=== PATIENT | female | born 1990 | race Caucasian/White ===

== ENCOUNTER 2018-10-21 21:54 | Emergency (ER) | payer MEDICAID ==
[~2018-10-21] VITALS: Ht 165.1 cm; Wt 49.0 kg
--- NOTE | 2018-10-21 22:02 | NUR ---
Dr. Riggins at bedside for mse.
[2018-10-21] MEDS ORDERED: SULFAMETH/TRIMETH 800/160 MG TABLET ONE (22:09)
[2018-10-21 22:11] VITALS: BP 111/64
--- NOTE | 2018-10-21 22:11 | NUR ---
Patient discharged to home in stable conditon. Written and verbal after care instructions given. Patient verbalizes understanding of instructions. Patient left with stable gait.
[2018-10-21] MEDS ORDERED: SULFAMETH/TRIMETH 800/160 MG TABLET PO ONE (22:15)
== END 2018-10-21 22:12 | disposition home or self-care (01) ==
LOC: ER 21:54
DX: S60.562A Insect bite (nonvenomous) of left hand, initial encounter (principal); L03.114 Cellulitis of left upper limb; F41.9 Anxiety disorder, unspecified; W57.XXXA Bitten or stung by nonvenomous insect and other nonvenomous arthropods, initial encounter; Y93.89 Activity, other specified; Y92.89 Other specified places as the place of occurrence of the external cause; Y99.8 Other external cause status
CPT/HCPCS: A4663